=== PATIENT | male | born 1980 | race Caucasian/White ===

== ENCOUNTER 2016-12-08 19:09 | Emergency (ER) | payer MEDICAID ==
--- NOTE | 2016-12-08 19:44 | RAD ---
Exam: Three-view left hand COMPARISON: None INDICATION: Crush injury. FINDINGS: PA, lateral and oblique views of the left hand were obtained. Pronounced soft tissue swelling seen over the dorsum of the hand. Overall normal bone mineralization. Alignment is normal. No acute fracture is identified. IMPRESSION: No acute osseous abnormality in the left hand.
[2016-12-08] MEDS ORDERED: HYDROCODONE/ACETAMINOPHEN 5/325MG TABLET ONE (21:03)
== END 2016-12-08 21:32 | disposition home or self-care (01) ==
LOC: ED 19:09
DX: S69.92XA Unspecified injury of left wrist, hand and finger(s), initial encounter (principal); Z87.891 Personal history of nicotine dependence; W20.8XXA Other cause of strike by thrown, projected or falling object, initial encounter; Y92.9 Unspecified place or not applicable
CPT/HCPCS: 73130; 99283 ×2; A9270

== ENCOUNTER 2017-01-09 20:57 | Emergency (ER) | payer MEDICAID ==
[2017-01-09] MEDS ORDERED: OXYCODONE/ACETAMINOPHEN 5/325 MG TABLET ONE (22:37)
[2017-01-09] MEDS ORDERED: KETOROLAC TROMETHAMINE 60 MG/2 ML VIAL ONE (22:37)
--- NOTE | 2017-01-10 09:19 | RAD ---
HISTORY: Crush injury while Stacking [employer]. Initial encounter. COMPARISON: 12/08/2016 TECHNIQUE: Three views of the left hand FINDINGS: Bones: No fracture or dislocation. Joints: Unremarkable. Soft tissue: Normal. IMPRESSION: No fracture or dislocation.
== END 2017-01-09 22:50 | disposition home or self-care (01) ==
LOC: ED 20:57
DX: S60.222A Contusion of left hand, initial encounter (principal); X58.XXXA Exposure to other specified factors, initial encounter; Y92.9 Unspecified place or not applicable; Z87.891 Personal history of nicotine dependence
CPT/HCPCS: 73130; 99283 ×2; 96372; A9270; J1885